=== PATIENT | female | born 1990 | race African-American/Black ===

== ENCOUNTER 2017-07-28 13:10 | Emergency (ER) | payer OTHER ==
[~2017-07-28] VITALS: Ht 167.6 cm; Wt 101.2 kg
[2017-07-28 13:51] VITALS: BP 133/57; TEMP 97.9
== END 2017-07-28 14:13 | disposition home or self-care (01) ==
LOC: ED 13:10
DX: K08.89 Other specified disorders of teeth and supporting structures (principal); K02.9 Dental caries, unspecified
CPT/HCPCS: 99281